=== PATIENT | male | born 1960 | race Caucasian/White ===

== ENCOUNTER 2018-02-21 14:59 | Inpatient (IN) | payer OTHER ==
[2018-02-21] MEDS: HYDROCODONE/APAP (5/325) TAB PO ×2 (15:32→22:38)
[2018-02-21 16:20] LABS: ADD MAN DIFF? NO
[2018-02-21 16:21] LABS: ABNORMAL IP MESSAGE 1; BASOPHIL # 0.1 10^3/ul (0.0-0.1); BASOPHILS % 0.5 % (0.0-2.0); EOSINOPHILS % 0.2 % (0.0-7.0); HEMATOCRIT 29.1 % (42.0-52.0); HEMOGLOBIN 9.7 g/dl (14.0-18.0); LYMPHOCYTES # 0.4 10^3/ul (0.8-2.9); LYMPHOCYTES % 2.4 % (15.0-51.0); MEAN CORPUSCULAR HEMOGLOBIN 26.5 pg (29.0-33.0); MEAN CORPUSCULAR HGB CONC 33.3 g/dl (32.0-37.0); MEAN CORPUSCULAR VOLUME 79.5 fl (82.0-101.0); MEAN PLATELET VOLUME 11.1 fl (7.4-10.4); MONOCYTES % 6.3 % (0.0-11.0); NEUTROPHIL # 14.2 10^3/ul (1.6-7.5); NEUTROPHILS % 89.6 % (39.0-77.0); PLATELET COUNT 206 10^3/UL (140-415); POSITIVE DIFF @See below; RED BLOOD COUNT 3.66 10^6/ul (4.70-6.10); RED CELL DISTRIBUTION WIDTH 15.4 % (11.5-14.5)
[2018-02-21 16:21] LABS: WHITE BLOOD COUNT 15.9 10^3/ul (4.8-10.8)
[2018-02-21 17:06] LABS: ANION GAP 16 (8-16); BLOOD UREA NITROGEN 67 mg/dl (7-20); CALCIUM 7.6 mg/dl (8.4-10.2); CARBON DIOXIDE 19 mmol/L (21-31); CHLORIDE 91 mmol/L (97-110); CREATININE 4.28 mg/dl (0.61-1.24); GLUCOSE 124 mg/dl (70-220); POTASSIUM 3.2 mmol/L (3.5-5.1); SODIUM 123 mmol/L (135-144)
[2018-02-21 17:13] LABS: URINE BLOOD (Dip) POC 1+ (NEGATIVE); URINE KETONES (Dip) POC Negative (NEGATIVE); URINE LEUKOCYTE EST (Dip) POC 1+ (NEGATIVE); URINE NITRITE (Dip) POC Negative (NEGATIVE); URINE TOTAL PROTEIN POC 3+ (NEGATIVE)
[2018-02-21 17:13] LABS: URINE PH (Dip) POC 6.5 (5.0-8.5)
[2018-02-21] MEDS: CEFTRIAXONE 1 GM/50 ML (PMX) 50 ML IVPB (17:31)
[2018-02-21] MEDS ORDERED: ACETAMINOPHEN 325 MG TAB PO (18:30)
[2018-02-21] MEDS ORDERED: ONDANSETRON 4 MG INJ IV (18:30)
[2018-02-21] MEDS: POTASSIUM CHLORIDE (SR) 20 MEQ TAB PO (21:27)
[2018-02-21] MEDS: SOD CHLORIDE 0.9% 1,000 ML IV (21:27)
[2018-02-22] MEDS: ACCU-CHEK XX (02:00)
[2018-02-22] MEDS ORDERED: PENDING SANTYL ORDER FOR WOUND CARE XX (03:00)
[2018-02-22] MEDS: ACETAMINOPHEN 325 MG TAB PO ×2 (03:04→17:08)
[2018-02-22 03:48] LABS: ADD MAN DIFF? NO
[2018-02-22 04:04] LABS: WHITE BLOOD COUNT 19.5 10^3/ul (4.8-10.8)
[2018-02-22 04:04] LABS: ABNORMAL IP MESSAGE 1; BASOPHIL # 0.1 10^3/ul (0.0-0.1); BASOPHILS % 0.5 % (0.0-2.0); EOSINOPHILS % 0.2 % (0.0-7.0); HEMATOCRIT 27.4 % (42.0-52.0); HEMOGLOBIN 9.3 g/dl (14.0-18.0); LYMPHOCYTES # 0.4 10^3/ul (0.8-2.9); MEAN CORPUSCULAR HEMOGLOBIN 26.7 pg (29.0-33.0); MEAN CORPUSCULAR HGB CONC 33.9 g/dl (32.0-37.0); MEAN CORPUSCULAR VOLUME 78.7 fl (82.0-101.0); MEAN PLATELET VOLUME 11.4 fl (7.4-10.4); MONOCYTE # 1.2 10^3/ul (0.3-0.9); MONOCYTES % 6.3 % (0.0-11.0); NEUTROPHIL # 17.4 10^3/ul (1.6-7.5); NEUTROPHILS % 89.4 % (39.0-77.0); PLATELET COUNT 205 10^3/UL (140-415); POSITIVE DIFF @See below; RED BLOOD COUNT 3.48 10^6/ul (4.70-6.10); RED CELL DISTRIBUTION WIDTH 15.5 % (11.5-14.5)
[2018-02-22 04:14] LABS: LACTIC ACID 0.8 mmol/L (0.5-2.0)
[2018-02-22 04:15] LABS: ANION GAP 10 (8-16); BLOOD UREA NITROGEN 74 mg/dl (7-20); CALCIUM 7.5 mg/dl (8.4-10.2); CARBON DIOXIDE 23 mmol/L (21-31); CHLORIDE 94 mmol/L (97-110); GLUCOSE 104 mg/dl (70-220); POTASSIUM 3.4 mmol/L (3.5-5.1); SODIUM 124 mmol/L (135-144)
[2018-02-22] MEDS: HYDROCODONE/APAP (5/325) TAB PO ×2 (06:12→12:28)
[2018-02-22] MEDS: PANTOPRAZOLE (EC) 40 MG TAB PO (06:12)
[2018-02-22] MEDS: CEFTRIAXONE 1 GM/50 ML (PMX) 50 ML IVPB (06:13)
[2018-02-22] MEDS: COLLAGENASE 5 GM (UD JAR) TOP ×2 (06:18→09:00)
[2018-02-22 07:38] LABS: LACTIC ACID 0.6 mmol/L (0.5-2.0)
[2018-02-22] MEDS: INSULIN ASPART [NOVOLOG] 3 ML PEN SC ×4 (07:51→21:00)
[2018-02-22 15:00] LABS: ANION GAP 14 (8-16); BLOOD UREA NITROGEN 75 mg/dl (7-20); CALCIUM 7.3 mg/dl (8.4-10.2); CARBON DIOXIDE 21 mmol/L (21-31); CHLORIDE 93 mmol/L (97-110); CREATININE 4.82 mg/dl (0.61-1.24); GLUCOSE 107 mg/dl (70-220); POTASSIUM 3.7 mmol/L (3.5-5.1); SODIUM 124 mmol/L (135-144)
[2018-02-22] MEDS ORDERED: ACETAMINOPHEN 325 MG TAB PO (17:00)
[2018-02-22] MEDS ORDERED: VANCOMYCIN IV PER PHARMACY XX (17:00)
[2018-02-22] MEDS: ALBUMIN HUMAN 25% 100 ML IV (17:38)
[2018-02-22] MEDS: CALCIUM ACETATE 667 MG CAP PO (17:52)
[2018-02-22] MEDS: MEROPENEM 500MG/50 ML (PMX) 50 ML IVPB (18:14)
[2018-02-22] MEDS: VANCOMYCIN 2 GM in SOD CHLORIDE 0.9% 500 ML IVPB (18:35)
[2018-02-22] MEDS: SOD CHLORIDE 0.9% 1,000 ML IV (21:00)
[2018-02-23] MEDS: ACCU-CHEK XX (02:00)
[2018-02-23] MEDS: HYDROCODONE/APAP (5/325) TAB PO ×3 (02:11→20:37)
[2018-02-23] MEDS: ALBUMIN HUMAN 25% 100 ML IV ×2 (02:16→08:53)
[2018-02-23] MEDS: SOD CHLORIDE 0.9% 1,000 ML IV (05:05)
[2018-02-23] MEDS: PANTOPRAZOLE (EC) 40 MG TAB PO (05:05)
[2018-02-23 05:35] LABS: ADD MAN DIFF? NO
[2018-02-23 05:47] LABS: ABNORMAL IP MESSAGE 1; BASOPHIL # 0.1 10^3/ul (0.0-0.1); BASOPHILS % 0.5 % (0.0-2.0); EOSINOPHILS # 0.2 10^3/ul (0.0-0.5); EOSINOPHILS % 1.2 % (0.0-7.0); HEMATOCRIT 25.7 % (42.0-52.0); HEMOGLOBIN 8.5 g/dl (14.0-18.0); LYMPHOCYTES # 0.5 10^3/ul (0.8-2.9); LYMPHOCYTES % 3.4 % (15.0-51.0); MEAN CORPUSCULAR HEMOGLOBIN 26.4 pg (29.0-33.0); MEAN CORPUSCULAR HGB CONC 33.1 g/dl (32.0-37.0); MEAN CORPUSCULAR VOLUME 79.8 fl (82.0-101.0); MEAN PLATELET VOLUME 11.1 fl (7.4-10.4); MONOCYTE # 1.3 10^3/ul (0.3-0.9); MONOCYTES % 8.6 % (0.0-11.0); NEUTROPHIL # 13.2 10^3/ul (1.6-7.5); NEUTROPHILS % 84.8 % (39.0-77.0); PLATELET COUNT 128 10^3/UL (140-415); POSITIVE DIFF @See below; RED BLOOD COUNT 3.22 10^6/ul (4.70-6.10); RED CELL DISTRIBUTION WIDTH 15.8 % (11.5-14.5)
[2018-02-23 05:47] LABS: WHITE BLOOD COUNT 15.5 10^3/ul (4.8-10.8)
[2018-02-23 06:00] LABS: PHOSPHORUS 6.1 mg/dl (2.5-4.9)
[2018-02-23 06:00] LABS: MAGNESIUM 1.8 mg/dl (1.7-2.5)
[2018-02-23 06:15] LABS: ANION GAP 15 (8-16); BLOOD UREA NITROGEN 79 mg/dl (7-20); CALCIUM 7.5 mg/dl (8.4-10.2); CARBON DIOXIDE 21 mmol/L (21-31); CHLORIDE 93 mmol/L (97-110); CREATININE 4.88 mg/dl (0.61-1.24); GLUCOSE 103 mg/dl (70-220); POTASSIUM 3.4 mmol/L (3.5-5.1); SODIUM 126 mmol/L (135-144)
[2018-02-23] MEDS: INSULIN ASPART [NOVOLOG] 3 ML PEN SC ×4 (08:00→20:28)
[2018-02-23] MEDS: CALCIUM ACETATE 667 MG CAP PO ×3 (08:51→17:19)
[2018-02-23] MEDS: COLLAGENASE 5 GM (UD JAR) TOP (08:51)
[2018-02-23] MEDS: MULTIVIT/CA CARB/B CMPLX/FA TAB PO (08:51)
[2018-02-23] MEDS: MEROPENEM 500MG/50 ML (PMX) 50 ML IVPB ×2 (08:51→20:31)
[2018-02-23] MEDS: FOLIC ACID 1 MG TAB PO (08:52)
[2018-02-23] MEDS: THIAMINE 100 MG TAB PO (08:52)
[2018-02-23] MEDS: ACETAMINOPHEN 325 MG TAB PO (12:11)
[2018-02-23] MEDS: BALSAM PERU/CASTOR OIL 60 GM TUBE TOP ×2 (12:15→20:32)
[2018-02-23] MEDS ORDERED: HEPARIN 1000 UNITS/ML 10 ML INJ CATHETER (15:30)
[2018-02-23] MEDS ORDERED: ALBUMIN HUMAN 25% 50 ML IV (15:30)
[2018-02-23] MEDS ORDERED: SODIUM CHLORIDE 0.9% 1L BAG IV (15:30)
[2018-02-23 17:53] LABS: HEPATITIS B SURFACE ANTIGEN NEGATIVE (NEGATIVE)
[2018-02-23 18:10] LABS: HEPATITIS B SURFACE ANTIBODY NEGATIVE (NEGATIVE)
[2018-02-24] MEDS: ACCU-CHEK XX (01:06)
[2018-02-24] MEDS: PANTOPRAZOLE (EC) 40 MG TAB PO (05:27)
[2018-02-24 06:44] LABS: ADD MAN DIFF? NO
[2018-02-24 06:45] LABS: ABNORMAL IP MESSAGE 1; BASOPHIL # 0.1 10^3/ul (0.0-0.1); BASOPHILS % 0.4 % (0.0-2.0); EOSINOPHILS # 0.1 10^3/ul (0.0-0.5); EOSINOPHILS % 0.6 % (0.0-7.0); HEMATOCRIT 30.9 % (42.0-52.0); HEMOGLOBIN 10.2 g/dl (14.0-18.0); LYMPHOCYTES # 0.7 10^3/ul (0.8-2.9); LYMPHOCYTES % 3.4 % (15.0-51.0); MEAN CORPUSCULAR HEMOGLOBIN 26.4 pg (29.0-33.0); MEAN CORPUSCULAR VOLUME 80.1 fl (82.0-101.0); MEAN PLATELET VOLUME 11.3 fl (7.4-10.4); MONOCYTE # 1.8 10^3/ul (0.3-0.9); MONOCYTES % 8.9 % (0.0-11.0); NEUTROPHIL # 17.3 10^3/ul (1.6-7.5); NEUTROPHILS % 84.8 % (39.0-77.0); PLATELET COUNT 174 10^3/UL (140-415); POSITIVE DIFF @See below; RED BLOOD COUNT 3.86 10^6/ul (4.70-6.10); RED CELL DISTRIBUTION WIDTH 16.2 % (11.5-14.5)
[2018-02-24 06:45] LABS: WHITE BLOOD COUNT 20.4 10^3/ul (4.8-10.8)
[2018-02-24 07:10] LABS: PHOSPHORUS 4.2 mg/dl (2.5-4.9)
[2018-02-24 07:10] LABS: ANION GAP 15 (8-16); BLOOD UREA NITROGEN 49 mg/dl (7-20); CALCIUM 8.3 mg/dl (8.4-10.2); CARBON DIOXIDE 22 mmol/L (21-31); CHLORIDE 100 mmol/L (97-110); CREATININE 3.11 mg/dl (0.61-1.24); GLUCOSE 118 mg/dl (70-220); POTASSIUM 3.9 mmol/L (3.5-5.1); SODIUM 133 mmol/L (135-144)
[2018-02-24 07:13] LABS: VANCOMYCIN,RANDOM 12.3 ug/ml
[2018-02-24] MEDS: INSULIN ASPART [NOVOLOG] 3 ML PEN SC ×4 (08:00→21:00)
[2018-02-24] MEDS: CALCIUM ACETATE 667 MG CAP PO ×3 (08:30→17:10)
[2018-02-24] MEDS: FOLIC ACID 1 MG TAB PO (08:31)
[2018-02-24] MEDS: MULTIVIT/CA CARB/B CMPLX/FA TAB PO (08:31)
[2018-02-24] MEDS: THIAMINE 100 MG TAB PO (08:32)
[2018-02-24] MEDS: MEROPENEM 500MG/50 ML (PMX) 50 ML IVPB ×2 (08:32→21:41)
[2018-02-24] MEDS: BALSAM PERU/CASTOR OIL 60 GM TUBE TOP ×2 (08:33→21:40)
[2018-02-24] MEDS: COLLAGENASE 5 GM (UD JAR) TOP (08:33)
[2018-02-24] MEDS: VANCOMYCIN 1 GM 250 ML IVPB (12:18)
[2018-02-24] MEDS: LIDOCAINE 1% (MDV) 10 ML INJ (12:19)
[2018-02-24] MEDS: HYDROCODONE/APAP (5/325) TAB PO (19:54)
[2018-02-25] MEDS: ACCU-CHEK XX (02:00)
[2018-02-25] MEDS: PANTOPRAZOLE (EC) 40 MG TAB PO (05:20)
[2018-02-25] MEDS: HYDROCODONE/APAP (5/325) TAB PO ×3 (06:29→22:32)
[2018-02-25 06:47] LABS: ADD MAN DIFF? NO
[2018-02-25 06:48] LABS: BASOPHIL # 0.1 10^3/ul (0.0-0.1); BASOPHILS % 0.3 % (0.0-2.0); EOSINOPHILS # 0.1 10^3/ul (0.0-0.5); EOSINOPHILS % 0.5 % (0.0-7.0); LYMPHOCYTES # 0.9 10^3/ul (0.8-2.9); MEAN CORPUSCULAR HEMOGLOBIN 26.5 pg (29.0-33.0); MEAN CORPUSCULAR HGB CONC 33.3 g/dl (32.0-37.0); MEAN CORPUSCULAR VOLUME 79.4 fl (82.0-101.0); MEAN PLATELET VOLUME 11.2 fl (7.4-10.4); MONOCYTE # 1.5 10^3/ul (0.3-0.9); NEUTROPHIL # 15.8 10^3/ul (1.6-7.5); NEUTROPHILS % 84.4 % (39.0-77.0); PLATELET COUNT 198 10^3/UL (140-415); RED CELL DISTRIBUTION WIDTH 16.4 % (11.5-14.5)
[2018-02-25 06:48] LABS: WHITE BLOOD COUNT 18.7 10^3/ul (4.8-10.8)
[2018-02-25 07:21] LABS: ANION GAP 14 (8-16); BLOOD UREA NITROGEN 60 mg/dl (7-20); CALCIUM 7.8 mg/dl (8.4-10.2); CARBON DIOXIDE 23 mmol/L (21-31); CHLORIDE 100 mmol/L (97-110); CREATININE 3.55 mg/dl (0.61-1.24); GLUCOSE 150 mg/dl (70-220); POTASSIUM 3.7 mmol/L (3.5-5.1); SODIUM 133 mmol/L (135-144)
[2018-02-25 07:23] LABS: MAGNESIUM 1.9 mg/dl (1.7-2.5)
[2018-02-25 07:23] LABS: PHOSPHORUS 4.4 mg/dl (2.5-4.9)
[2018-02-25] MEDS: CALCIUM ACETATE 667 MG CAP PO ×3 (08:09→17:28)
[2018-02-25] MEDS: INSULIN ASPART [NOVOLOG] 3 ML PEN SC ×4 (08:17→20:26)
[2018-02-25] MEDS: THIAMINE 100 MG TAB PO (09:36)
[2018-02-25] MEDS: COLLAGENASE 5 GM (UD JAR) TOP (09:36)
[2018-02-25] MEDS: FOLIC ACID 1 MG TAB PO (09:36)
[2018-02-25] MEDS: MULTIVIT/CA CARB/B CMPLX/FA TAB PO (09:36)
[2018-02-25] MEDS: BALSAM PERU/CASTOR OIL 60 GM TUBE TOP ×2 (09:36→20:27)
[2018-02-25] MEDS: MEROPENEM 500MG/50 ML (PMX) 50 ML IVPB ×2 (09:36→20:23)
[2018-02-25] MEDS: RIFAMPIN 300 MG CAP PO (15:22)
[2018-02-26] MEDS: ACCU-CHEK XX (02:38)
[2018-02-26] MEDS: PANTOPRAZOLE (EC) 40 MG TAB PO (05:47)
[2018-02-26 05:53] LABS: ADD MAN DIFF? NO
[2018-02-26 05:57] LABS: ABNORMAL IP MESSAGE 1; BASOPHIL # 0.1 10^3/ul (0.0-0.1); BASOPHILS % 0.4 % (0.0-2.0); EOSINOPHILS # 0.1 10^3/ul (0.0-0.5); EOSINOPHILS % 0.6 % (0.0-7.0); HEMATOCRIT 27.7 % (42.0-52.0); HEMOGLOBIN 9.1 g/dl (14.0-18.0); LYMPHOCYTES # 0.9 10^3/ul (0.8-2.9); LYMPHOCYTES % 3.9 % (15.0-51.0); MEAN CORPUSCULAR HEMOGLOBIN 26.1 pg (29.0-33.0); MEAN CORPUSCULAR HGB CONC 32.9 g/dl (32.0-37.0); MEAN CORPUSCULAR VOLUME 79.6 fl (82.0-101.0); MEAN PLATELET VOLUME 10.9 fl (7.4-10.4); MONOCYTE # 1.8 10^3/ul (0.3-0.9); MONOCYTES % 7.7 % (0.0-11.0); NEUTROPHIL # 19.6 10^3/ul (1.6-7.5); NEUTROPHILS % 85.7 % (39.0-77.0); PLATELET COUNT 167 10^3/UL (140-415); POSITIVE DIFF @See below; RED BLOOD COUNT 3.48 10^6/ul (4.70-6.10); RED CELL DISTRIBUTION WIDTH 16.6 % (11.5-14.5)
[2018-02-26 05:57] LABS: WHITE BLOOD COUNT 22.8 10^3/ul (4.8-10.8)
[2018-02-26 06:18] LABS: PHOSPHORUS 4.9 mg/dl (2.5-4.9)
[2018-02-26 06:20] LABS: ANION GAP 13 (8-16); BLOOD UREA NITROGEN 78 mg/dl (7-20); CALCIUM 7.8 mg/dl (8.4-10.2); CARBON DIOXIDE 24 mmol/L (21-31); CHLORIDE 99 mmol/L (97-110); CREATININE 3.88 mg/dl (0.61-1.24); GLUCOSE 165 mg/dl (70-220); POTASSIUM 4.2 mmol/L (3.5-5.1); SODIUM 132 mmol/L (135-144)
[2018-02-26 09:00] LABS: AADO2 Arterial 85.3 mmHg (7.0-24.0); Allen Test ACCEPTAB; Arterial Base Excess -2.2 mmol/L (-3.0-3); Arterial Blood Gas Oxygen Sat 93.1 mmHG (95.0-98.0); Arterial COHb 0.9 % (0.0-3.0); Arterial Fraction of Oxyhgb 92.3 % (93.0-99.0); Arterial HCO3 21.5 mmol/L (22.0-26.0); Arterial MetHb 0 % (0.0-1.5); Arterial Total Hemglobin 10.8 g/dl (12.0-18.0); MODE NASAL CANNULA; Site Left Radial
[2018-02-26] MEDS: MULTIVIT/CA CARB/B CMPLX/FA TAB PO (09:04)
[2018-02-26] MEDS: THIAMINE 100 MG TAB PO (09:04)
[2018-02-26] MEDS: COLLAGENASE 5 GM (UD JAR) TOP (09:04)
[2018-02-26] MEDS: RIFAMPIN 300 MG CAP PO (09:04)
[2018-02-26] MEDS: FOLIC ACID 1 MG TAB PO (09:04)
[2018-02-26] MEDS: CALCIUM ACETATE 667 MG CAP PO ×3 (09:05→17:24)
[2018-02-26] MEDS: INSULIN ASPART [NOVOLOG] 3 ML PEN SC ×4 (09:06→20:07)
[2018-02-26] MEDS: LUBIPROSTONE 24 MCG CAP PO (09:08)
[2018-02-26] MEDS: BALSAM PERU/CASTOR OIL 60 GM TUBE TOP ×2 (09:09→20:04)
[2018-02-26] MEDS: MEROPENEM 500MG/50 ML (PMX) 50 ML IVPB (09:09)
[2018-02-26] MEDS: POLYETHYLENE GLYCOL 17 GM PACKET PO (09:35)
[2018-02-26] MEDS: HYDROCODONE/APAP (5/325) TAB PO ×2 (09:55→20:09)
[2018-02-26] MEDS ORDERED: GENTAMICIN IV PER PHARMACY XX (12:00)
[2018-02-26] MEDS ORDERED: TRIMETHOPRIM/SULFAMETHOXAZOLE 15 ML in DEXTROSE 5% 500 ML IVPB (14:00)
[2018-02-26] MEDS ORDERED: HEPARIN 1000 UNITS/ML 10 ML INJ CATHETER (15:00)
[2018-02-26] MEDS ORDERED: SODIUM CHLORIDE 0.9% 1L BAG IV (15:00)
[2018-02-26] MEDS ORDERED: ALBUMIN HUMAN 25% 50 ML IV (15:00)
[2018-02-26] MEDS ORDERED: HEPARIN 1000 UNITS/ML 10 ML INJ (15:25)
[2018-02-26] MEDS ORDERED: LIDOCAINE 1% (MDV) 20 ML INJ (15:25)
[2018-02-26] MEDS ORDERED: GENTAMICIN IVPB (16:00)
[2018-02-26] MEDS ORDERED: DEXTROSE 5% IVPB (16:00)
[2018-02-26] MEDS: GENTAMICIN 160 MG in DEXTROSE 5% 100 ML IVPB (17:21)
[2018-02-26] MEDS ORDERED: FUROSEMIDE 40 MG INJ IV (18:00)
[2018-02-26] MEDS: DAPTOMYCIN 600 MG in SOD CHLORIDE 0.9% 100 ML IVPB (18:14)
[2018-02-26] MEDS: ALBUMIN HUMAN 25% 100 ML IV (19:00)
[2018-02-27] MEDS: ACCU-CHEK XX (02:07)
[2018-02-27] MEDS ORDERED: GENTAMICIN 120 MG/NS (PMX) 100 ML IVPB (17:00)
== END 2018-02-27 03:21 | disposition expired | DRG 314 ==
LOC: E/R 14:59 → PP2 18:08
PROC: 0BH17EZ Insertion of Endotracheal Airway into Trachea, Via Natural or Artificial Opening (ICD-10-PCS; principal; 2018-02-26 14:34)
PROC: 02H633Z Insertion of Infusion Device into Right Atrium, Percutaneous Approach (ICD-10-PCS; 2018-02-26 14:34)
PROC: 5A1D70Z Performance of Urinary Filtration, Intermittent, Less than 6 Hours Per Day (ICD-10-PCS; 2018-02-26 14:34)
PROC: 5A1D70Z Performance of Urinary Filtration, Intermittent, Less than 6 Hours Per Day (ICD-10-PCS; 2018-02-26 14:34)
PROC: B513YZA Fluoroscopy of Right Jugular Veins using Other Contrast, Guidance (ICD-10-PCS; 2018-02-26 14:34)
PROC: 05PY33Z Removal of Infusion Device from Upper Vein, Percutaneous Approach (ICD-10-PCS; 2018-02-26 14:34)
PROC: 5A12012 Performance of Cardiac Output, Single, Manual (ICD-10-PCS; 2018-02-26 14:34)
DX: T80.211A Bloodstream infection due to central venous catheter, initial encounter (principal); A41.02 Sepsis due to Methicillin resistant Staphylococcus aureus; N18.6 End stage renal disease; J18.9 Pneumonia, unspecified organism; G93.41 Metabolic encephalopathy; L03.116 Cellulitis of left lower limb; L03.115 Cellulitis of right lower limb; E87.1 Hypo-osmolality and hyponatremia; I13.2 Hypertensive heart and chronic kidney disease with heart failure and with stage 5 chronic kidney disease, or end stage renal disease; E44.0 Moderate protein-calorie malnutrition; I46.9 Cardiac arrest, cause unspecified; E11.22 Type 2 diabetes mellitus with diabetic chronic kidney disease; I50.9 Heart failure, unspecified; I95.9 Hypotension, unspecified; Z99.81 Dependence on supplemental oxygen; F10.10 Alcohol abuse, uncomplicated; D63.1 Anemia in chronic kidney disease; R09.02 Hypoxemia; K21.9 Gastro-esophageal reflux disease without esophagitis; I25.10 Atherosclerotic heart disease of native coronary artery without angina pectoris; M54.5 Low back pain; B95.62 Methicillin resistant Staphylococcus aureus infection as the cause of diseases classified elsewhere; Z68.35 Body mass index [BMI] 35.0-35.9, adult; Z79.4 Long term (current) use of insulin; Z99.2 Dependence on renal dialysis
CPT/HCPCS: 36556; 36589; 36600; 71045; 73030-RT; 73562; 73590; 80048; 80202; 81003; 82803; 82962; 83605; 83735; 84100; 85025; 86706; 87040; 87070; 87081; 87086; 87340; 90935; 96374; 99285-25; G0378